=== PATIENT | female | born 1950 | race Caucasian/White ===

== ENCOUNTER 2017-08-13 23:09 | Inpatient (IN) | payer OTHER ==
[~2017-08-13] VITALS: Ht 162.6 cm; Wt 102.1 kg
[2017-08-14 00:25] LABS: EOSINOPHIL (%) 0.7 % (0-5); EOSINOPHIL COUNT 0.1 K/uL (0-0.3); HEMATOCRIT 40.4 % (36.0-46.0); IMMATURE GRANULOCYTE (%) 0.5 % (0.0-0.7); IMMATURE GRANULOCYTE COUNT 0.1 K/uL; INSTRUMENT ABS NEUTROPHIL CT 7.8 K/uL; LYMPHOCYTE COUNT 0.5 K/uL (1.0-2.8); MCH 26.3 PG (29.0-34.0); MCHC 30.9 G/DL (30.0-36.0); MCV 84.9 FL (83-99); MEAN PLAT.VOLUME 10.6 uM^3 (9.5-12.4); MONOCYTE (%) 7.1 % (3-12); MONOCYTE COUNT 0.7 K/uL (0-0.8); NEUTROPHIL (%) 85.6 % (45-76); NEUTROPHIL COUNT 7.8 K/uL (1.8-6.4); PLATELET COUNT 233 K/uL (156-360); RBC DIS.WIDTH-SD 52.8 % (39-53); RED BLOOD COUNT 4.76 M/uL (3.80-5.20); WHITE BLOOD COUNT 9.1 K/uL (4.1-10.2)
[2017-08-14 00:40] LABS: CHLORIDE 106 mEq/L (99-109); SODIUM 140 mEq/L (136-147)
[2017-08-14 00:42] LABS: GLUCOSE 192 mg/dL (70-99)
[2017-08-14 00:43] LABS: ANION GAP 12 MEQ/L (2-14)
[2017-08-14 00:44] LABS: TOTAL BILIRUBIN 1.3 mg/dL (0.0-1.0)
[2017-08-14 00:45] LABS: ALKALINE PHOSPHATASE 146 IU/L (3-129)
[2017-08-14 00:46] LABS: GFR ESTIMATE (CALCULATED) 59 mL/min/
[2017-08-14 00:47] LABS: UREA NITROGEN (BUN) 16 mg/dL (9-23)
[2017-08-14 00:51] LABS: TROP-I INTERPRETATION NEGATIVE; TROPONIN-I 0.06 ng/mL (0.0-0.30)
[2017-08-14] MEDS ORDERED: LO-DOSE ASPIRIN81 M2 PO (01:54)
[2017-08-14] MEDS ORDERED: ALEVE220 MG PO (01:54)
[2017-08-14 03:01] LABS: ADD MIUA? YES; BILIRUBIN NEGATIVE; BLOOD MODERATE; COLOR YELLOW ((YELLOW)); GLUCOSE (STRIP) NEGATIVE; KETONES 20; LEUKOCYTES TRACE; NITRITE NEGATIVE; PROTEIN (STRIP) 100; SPECIFIC GRAVITY 1.014 (1.000-1.030)
[2017-08-14 03:22] LABS: BACTERIA 3+ /HPF; EPITHELIAL CELLS RARE /HPF; HYALINE CASTS 0-5 /LPF; MUCUS TRACE /LPF; RED BLOOD CELLS 0-5 /HPF (0-5); UCUL ADDED? YES
[2017-08-14] MEDS ORDERED: GLUCOPHAGE1000 MG PO (03:59)
[2017-08-14] MEDS ORDERED: COREG12.5 M1 PO (03:59)
[2017-08-14] MEDS ORDERED: VYTORIN 10/21 TABLET PO (03:59)
[2017-08-14] MEDS ORDERED: NORVASC10 MG PO (04:00)
[2017-08-14] MEDS ORDERED: NIASPAN,SLO-NI500 MG PO (04:01)
[2017-08-14] MEDS ORDERED: LO-DOSE ASPIRIN81 M1 PO (04:02)
[2017-08-14] MEDS ORDERED: GLIPIZIDE5 MG PO (04:05)
[2017-08-14] MEDS ORDERED: ZESTRIL40 MG PO (04:05)
[2017-08-14 05:24] VITALS: BP 177/85
[2017-08-14 05:32] LABS: POINT-OF-CARE METER ID UU14149397
[2017-08-14 08:51] VITALS: BP 167/89
[2017-08-14 09:50] LABS: POINT-OF-CARE METER ID UU14117124
[2017-08-14 13:52] LABS: POINT-OF-CARE METER ID UU14117124
[2017-08-14 15:48] VITALS: BP 177/84
[2017-08-14 17:47] LABS: POINT-OF-CARE METER ID UU14188577
[2017-08-14 21:44] LABS: POINT-OF-CARE METER ID UU14117124
[2017-08-14 23:20] VITALS: BP 121/63
[2017-08-15 01:34] LABS: POINT-OF-CARE METER ID UU14117124
[2017-08-15 03:49] VITALS: BP 134/64
[2017-08-15 06:15] LABS: POINT-OF-CARE METER ID UU14117124
[2017-08-15 06:24] LABS: HEMATOCRIT 33.2 % (36.0-46.0); MCH 25.8 PG (29.0-34.0); MCHC 29.5 G/DL (30.0-36.0); MCV 87.4 FL (83-99); PLATELET COUNT 195 K/uL (156-360); WHITE BLOOD COUNT 7.6 K/uL (4.1-10.2)
[2017-08-15 06:37] LABS: ANION GAP 9 MEQ/L (2-14); CHLORIDE 105 MEQ/L (99-109); GFR ESTIMATE (CALCULATED) 43 mL/min/; GLUCOSE 141 mg/dL (70-99); POTASSIUM 4.4 MEQ/L (3.7-5.4); SAMPLE HEMOLYSIS CHECK 0; SAMPLE ICTERIC CHECK 0; SAMPLE LIPEMIA CHECK 0; SODIUM 139 MEQ/L (136-147); UREA NITROGEN (BUN) 20 mg/dL (9-23)
[2017-08-15 08:30] VITALS: BP 134/61
[2017-08-15 11:16] LABS: POINT-OF-CARE METER ID UU14149397
[2017-08-15 12:21] VITALS: BP 134/63
[2017-08-15 16:30] VITALS: BP 140/68
[2017-08-15 17:02] LABS: POINT-OF-CARE METER ID UU14117124
[2017-08-15 19:39] VITALS: BP 75/45
[2017-08-15 21:37] LABS: POINT-OF-CARE METER ID UU14149397
[2017-08-15 23:37] VITALS: BP 111/52
[2017-08-16 04:50] VITALS: BP 107/56
[2017-08-16 06:15] LABS: POINT-OF-CARE METER ID UU14117124
[2017-08-16 07:23] LABS: Estimated Average Glucose 203 mg/dL (70-123); HEMOGLOBIN A1c (GLYCOHEMOGLOB) 8.7 % HGB (Below 5.7)
[2017-08-16 07:43] LABS: ANION GAP 9 MEQ/L (2-14); CHLORIDE 105 MEQ/L (99-109); GFR ESTIMATE (CALCULATED) 30 mL/min/; GLUCOSE 146 mg/dL (70-99); POTASSIUM 4.5 MEQ/L (3.7-5.4); SAMPLE HEMOLYSIS CHECK 0; SAMPLE ICTERIC CHECK 0; SAMPLE LIPEMIA CHECK 0; SODIUM 139 MEQ/L (136-147); UREA NITROGEN (BUN) 27 mg/dL (9-23)
[2017-08-16 08:30] VITALS: BP 102/53
[2017-08-16 12:32] VITALS: BP 110/59
[2017-08-16 13:26] LABS: POINT-OF-CARE METER ID UU14149397
[2017-08-16 16:00] VITALS: BP 90/72
[2017-08-16 16:23] LABS: POINT-OF-CARE METER ID UU14149397
[2017-08-16 19:47] VITALS: BP 104/52
[2017-08-16 21:51] LABS: POINT-OF-CARE METER ID UU14117124
[2017-08-16 23:49] VITALS: BP 104/54
[2017-08-17 04:16] VITALS: BP 147/62
[2017-08-17 05:50] LABS: HEMATOCRIT 31.4 % (36.0-46.0); MCH 26.1 PG (29.0-34.0); MCHC 30.3 G/DL (30.0-36.0); MCV 86.3 FL (83-99); MEAN PLAT.VOLUME 11.7 uM^3 (9.5-12.4); PLATELET COUNT 168 K/uL (156-360); RBC DIS.WIDTH-CV 16.8 % (11.8-14.6); RBC DIS.WIDTH-SD 53.2 % (39-53); RED BLOOD COUNT 3.64 M/uL (3.80-5.20); WHITE BLOOD COUNT 6.4 K/uL (4.1-10.2)
[2017-08-17 06:30] LABS: ANION GAP 8 MEQ/L (2-14); CHLORIDE 104 MEQ/L (99-109); GFR ESTIMATE (CALCULATED) 26 mL/min/; GLUCOSE 170 mg/dL (70-99); MAGNESIUM 1.9 mg/dl (1.3-2.7); SAMPLE HEMOLYSIS CHECK 0; SAMPLE ICTERIC CHECK 0; SAMPLE LIPEMIA CHECK 0; SODIUM 139 MEQ/L (136-147); UREA NITROGEN (BUN) 34 mg/dL (9-23)
[2017-08-17 06:50] LABS: POINT-OF-CARE METER ID UU14117124
[2017-08-17 09:01] VITALS: BP 120/65
[2017-08-17 11:56] LABS: POINT-OF-CARE METER ID UU14188577
[2017-08-17 12:11] VITALS: BP 128/68
[2017-08-17 16:16] VITALS: BP 127/60
[2017-08-17 16:53] LABS: POINT-OF-CARE METER ID UU14117124
[2017-08-17 20:12] VITALS: BP 131/63
[2017-08-17 21:48] LABS: POINT-OF-CARE METER ID UU14117124
[2017-08-18 00:14] VITALS: BP 138/63
[2017-08-18 03:56] VITALS: BP 146/67
[2017-08-18 06:43] LABS: POINT-OF-CARE METER ID UU14149397
[2017-08-18 06:44] LABS: EOSINOPHIL (%) 4.5 % (0-5); EOSINOPHIL COUNT 0.3 K/uL (0-0.3); HEMATOCRIT 32.8 % (36.0-46.0); IMMATURE GRANULOCYTE (%) 0.3 % (0.0-0.7); INSTRUMENT ABS NEUTROPHIL CT 4.4 K/uL; LYMPHOCYTE COUNT 0.6 K/uL (1.0-2.8); MCH 25.8 PG (29.0-34.0); MCHC 29.9 G/DL (30.0-36.0); MCV 86.3 FL (83-99); MEAN PLAT.VOLUME 11.1 uM^3 (9.5-12.4); MONOCYTE COUNT 0.9 K/uL (0-0.8); NEUTROPHIL (%) 70.6 % (45-76); NEUTROPHIL COUNT 4.4 K/uL (1.8-6.4); PLATELET COUNT 173 K/uL (156-360); RBC DIS.WIDTH-CV 17.1 % (11.8-14.6); RBC DIS.WIDTH-SD 53.1 % (39-53); WHITE BLOOD COUNT 6.2 K/uL (4.1-10.2)
[2017-08-18 07:13] LABS: ANION GAP 10 MEQ/L (2-14); CHLORIDE 106 MEQ/L (99-109); GFR ESTIMATE (CALCULATED) 37 mL/min/; GLUCOSE 152 mg/dL (70-99); POTASSIUM 4.1 MEQ/L (3.7-5.4); SAMPLE HEMOLYSIS CHECK 0; SAMPLE ICTERIC CHECK 0; SAMPLE LIPEMIA CHECK 0; SODIUM 141 MEQ/L (136-147); UREA NITROGEN (BUN) 33 mg/dL (9-23)
[2017-08-18 07:56] VITALS: BP 163/70
[2017-08-18 11:47] VITALS: BP 156/70
[2017-08-18 12:04] LABS: POINT-OF-CARE METER ID UU14208753
[2017-08-18 16:05] VITALS: BP 152/67
[2017-08-18 16:33] LABS: POINT-OF-CARE METER ID UU14208753
== END 2017-08-18 20:03 | disposition short-term general hospital (02) | DRG 536 ==
LOC: EME → EDBD 23:09 → EME 23:09 → EDOF 08-14 03:58 → 3EAST 08-14 03:58 → ENRESERV 08-14 03:59 → 3EAST 08-14 04:46
PROVIDERS: Emergency Medicine; Hospitalist; Physician Assistant Medical
DX: S72.001A Fracture of unspecified part of neck of right femur, initial encounter for closed fracture (principal); N39.0 Urinary tract infection, site not specified; N17.9 Acute kidney failure, unspecified; E11.65 Type 2 diabetes mellitus with hyperglycemia; N18.2 Chronic kidney disease, stage 2 (mild); E11.22 Type 2 diabetes mellitus with diabetic chronic kidney disease; I25.119 Atherosclerotic heart disease of native coronary artery with unspecified angina pectoris; E11.649 Type 2 diabetes mellitus with hypoglycemia without coma; E66.01 Morbid (severe) obesity due to excess calories; I13.0 Hypertensive heart and chronic kidney disease with heart failure and stage 1 through stage 4 chronic kidney disease, or unspecified chronic kidney disease; W18.30XA Fall on same level, unspecified, initial encounter; Y92.002 Bathroom of unspecified non-institutional (private) residence as the place of occurrence of the external cause; E78.5 Hyperlipidemia, unspecified; Z68.38 Body mass index [BMI] 38.0-38.9, adult; T39.395A Adverse effect of other nonsteroidal anti-inflammatory drugs [NSAID], initial encounter; I50.20 Unspecified systolic (congestive) heart failure; Z79.899 Other long term (current) drug therapy; Z95.5 Presence of coronary angioplasty implant and graft; Z95.1 Presence of aortocoronary bypass graft; Z91.14 Patient's other noncompliance with medication regimen; Z91.19 Patient's noncompliance with other medical treatment and regimen; I25.2 Old myocardial infarction; Z79.84 Long term (current) use of oral hypoglycemic drugs; Z79.82 Long term (current) use of aspirin; Z82.49 Family history of ischemic heart disease and other diseases of the circulatory system
CPT/HCPCS: 71010; 73502; 73552; 76770; 78452; 80048; 80053; 81003; 82948; 83036; 83735; 84484; 85025; 85027; 86850; 86900; 86901; 87077; 87086; 87186; 89190; 90686; 92610 GN; 93005; 93017; 93306; 94799; 99281; 99285; A9500; J0696; J1650; J1815; J1940; J2270; J2405; J2785; J3010; J7030